=== PATIENT | male | born 1970 | race Caucasian/White ===

== ENCOUNTER 2018-06-21 00:49 | Emergency (ER) | payer MEDICAID ==
[~2018-06-21] VITALS: Ht 182.9 cm; Wt 100.0 kg
[2018-06-21 01:16] VITALS: BP 135/93
[2018-06-21] MEDS ORDERED: HYDROCODONE/ACETAMINOPHEN 5-325 MG TABLET PO ONE (01:30)
== END 2018-06-21 02:02 | disposition home or self-care (01) ==
LOC: EMS 00:49
DX: K64.4 Residual hemorrhoidal skin tags (principal); K64.8 Other hemorrhoids